=== PATIENT | female | born 1975 | race Asian ===

== ENCOUNTER 2023-02-26 15:53 | Outpatient (CLI) | payer OTHER ==
[~2023-02-26 15:53] MED LIST: BENZONATATE100 MG PO; FLUC150T PO; MEDROL DOSEPAK4 MG PO; PEPCID40 MG PO; ZITHROMAX500 MG PO
== END 2023-02-26 19:28 | disposition home or self-care (01) ==
LOC: RAD 15:53
PROVIDERS: ATTEND Nurse Practitioner Family
DX: M54.17 Radiculopathy, lumbosacral region (principal)

== ENCOUNTER 2023-03-28 10:51 | Outpatient (CLI) | payer OTHER | END 2023-03-28 19:01 | disposition home or self-care (01) | LOC: MRI 10:51 | PROVIDERS: ATTEND Nurse Practitioner Family | DX: M47.896 Other spondylosis, lumbar region (principal) ==